=== PATIENT | male | born 1960 | race Caucasian/White ===

== ENCOUNTER 2023-11-21 13:10 | Inpatient (IN) | payer OTHER, SELFPAY ==
[2023-11-21] VITALS (14 sets, daily range): BP systolic 119–179; BP diastolic 70–116; BMI 31.9
--- NOTE | 2023-11-21 11:18 | ED.GENMED ---
History of Present Illness
General
Chief Complaint: Alcohol Problem
Source: patient and records
Exam Limitations: none
Time Seen by Provider: 11/21/23 10:41
Nursing documentation reviewed up to this point in time: agreed with
Travel History
Have you had any contact with someone who has COVID-19?: No
Do you have any symptoms of coronavirus? Fever > 100 degrees, chills, cough, shortness of breath, sore throat, loss of taste or smell, muscle aches, or headache?: No
History of Present Illness
History of Present Illness:
Patient is a 63-year-old male who presents to the emergency department complaining of cramping and twitching along with not able to keep anything down when he eats. Patient has had this before secondary to alcohol. Patient's last drink was at 4
AM. Patient normally drinks 15 beers and a few shots a day. Patient denies any numbness or paresthesias. Patient denies chest pain, shortness of breath or palpitations. Patient complains of vague diffuse abdominal pain and cramping.
Past History
Past History
ED Past Medical History: COPD, HTN and Other (chronic alcoholic)
ED Past Surgical History: Orthopedic (L ankle sx 1999)
Patient has exhibited threatening behavior?: No
Social History
Tobacco: Former smoker (quit 04/26)
Alcohol: Chronic alcoholic (3-4 beers a day)
Drug: None
Personal: Single
Living: with family
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
Family History
Family History: Other (n/c)
Review of Systems
Review of Systems
All Other Systems: ROS reviewed and negative except as documented in HPI and ROS
Constitutional: Reports fatigue; Denies fever or chills
EENT: Reports no symptoms
Respiratory: Reports no symptoms
Cardiac: Reports no symptoms
ABD/GI: Reports abdominal pain, nausea, vomiting and anorexia; Denies diarrhea or constipated
: Reports no symptoms
Musculoskeletal: Reports muscle pain
Skin: Reports no symptoms
Neurological: Reports no symptoms
Hematologic/Lymphatic: Reports no symptoms
Phy Exam
Physical Exam
Physical Exam:
Physical Exam
General: No apparent moderate distress, alert and appropriate, well nourished, dry mucous membranes
HENT: Normocephalic, supple with no lymphadenopathy, no thyromegaly
Eyes: Clear sclera, conjuctiva without injection
Heart: Regular rhythm and rate. No S3, S4. No murmur. No NVD
Lungs: No respiratory distress, no stridor, lung sounds clear and equal bilaterally
Abdomen: Soft, mild diffuse tenderness without guarding or rebound, no organomegaly, no CVA tenderness, BS good
Neuro: Alert and oriented x 3, CN II - XII intact, no motor focality, no cerebellar dysfunction
Skin: Scattered ecchymosis
Psychiatric: well kept. interactive and cooperative
Extremities: No edema, cyanosis, tenderness
Scores
Withdrawal Assessment of Alcohol
Withdrawal Assessment Completed?: Yes
Nausea and Vomiting: Intermittent nausea with dry heaves
Tactile Disturbances: None
Tremor: Moderate, with patient's arms extended
Auditory Disturbances: Not present
Paroxysmal Sweats: No sweat visible
Visual Disturbances: Not present
Anxiety: Mild anxiety
Headache, Fullness in Head: Very mild
Agitation: Moderately fidgety and restless
Orientation and clouding of sensorium: Oriented and can do serial additions
Total CIWA Score: 14
Alcohol Withdrawal Medication Recommendation: Equal to MSAS Score 5-7. Lorazepam 1mg IV or PO NOW & re-assess q2hrs
Course
Orders/Labs/Results
Orders:
Orders
11/21/23 11:09
Electrocardiogram (*1) Urgent
Reason for Study: Fatigue / Weakness
EKG- Treatment ONCE
11/21/23 11:10
Alcohol Urgent
CMP [Comprehensive Metabolic Panel] Urgent
Complete Blood Count/With Diff Urgent
11/21/23 11:16
Lipase Urgent
Serum Osmolality Urgent
11/21/23 11:17
0.9% Sodium Chloride 1000 ml [Nss] 1,000 ml IV BOLUS
Lorazepam [Ativan] 1 mg IV NOW STA
Ondansetron Injectable [Zofran] 4 mg IV NOW STA
Thiamine Injection 100 mg IV NOW STA
11/21/23 11:56
3% Sodium Chloride 250 ml [Sodium Chloride 3%] 250 ml IV ONCE
11/21/23 12:00
Urinalysis Reflex To Culture Urgent
Abnormal Lab Results
11/21/23
11:10
RBC 4.57 L 10^6/uL
(4.70-6.10)
MCH 32.6 H pg
(27.0-31.0)
Abs Immat Gran (auto) 0.1 H 10^3/uL
(0-0.05)
Absolute Neuts (auto) 7.2 H 10^3/uL
(1.4-6.5)
Absolute Lymphs (auto) 0.9 L 10^3/uL
(1.2-3.4)
Absolute Monos (auto) 0.7 H 10^3/uL
(0.1-0.6)
Immature Gran % 0.7 H %
(0-0.5)
Neutrophils % 79.2 H %
(42.2-75.2)
Lymphocytes % 10.1 L %
(20.5-51.1)
Sodium 113 L* mmol/L
(135-145)
Chloride 79 L mmol/L
(98-107)
AST 165 H U/L
(17-59)
ALT 108 H U/L
(0-50)
11/21/23 11:10
11/21/23 11:10
Vital Signs
Initial and Last Documented VS:
Initial Vital Signs
Temp Pulse Resp BP Pulse Ox
98.1 F 100 18 179/114 96
11/21/23 10:34 11/21/23 10:34 11/21/23 10:34 11/21/23 10:34 11/21/23 10:34
Last Documented Vital Signs
Temp Pulse Resp BP Pulse Ox
98.1 F 100 18 179/114 96
11/21/23 10:34 11/21/23 10:34 11/21/23 10:34 11/21/23 10:34 11/21/23 10:34
*Radiology
Radiology exam reviewed: other (na)
*Pulse Oximetry
Patient hypoxic: no
*EKG
Interpreted by ED Provider?: Yes
EKG Intrepretation Date: 11/21/23
EKG Intrepretation Time: 12:03
Interpretation: normal
Comparison EKG: no changes
Heart Rate: 83
Rate: normal
Rhythm: sinus
[place]: normal axis
Interval: normal interval
QRS Pattern: normal QRS
Ischemia: no ischemia
*District G[facility]er Interpretation
Rate: normal
Interpretation: normal
Heart Rate: 85
Rhythm: sinus
*Critical Care Note
Total Time (30-74mins, 75-104mins- exclusive of procedures): 35 minutes
Update Note
Update Note:
Patient's sodium once again is low. Patient was started on 3% and urine and serum osmolality will be done. Patient will be admitted.
ED Attending Note
-
Portions of this chart may have been created with voice recognition software.� Occasional wrong word or��sound alike� substitutions may have occurred due to the inherent limitations of voice recognition software.
Discharge Plan
Departure
Patient Disposition: Admit
Date of Disposition: 11/21/23
Time of Disposition: 12:04
Admit to: Telemetry
Admit to doctor: Hospitalist
Presentation/result/management discussed w/ accepting MD/DO: Hospitalist
Patient with high blood pressure during this ER visit?: Yes
Condition: Serious
Covid-19: Not Applicable
Discharge Problem:
Hyponatremia, Alcohol withdrawal
Prescriptions:
No Action
atorvastatin 20 MG tablet
20 mg PO DAILY
aspirin 81 MG tablet,delayed release (DR/EC)
81 mg PO DAILY
lisinopril-hydrochlorothiazide 20-12.5 mg Tablet
1 tab PO DAILY
nicotine 21 mg/24 hr Patch 24 Hour
1 patch TRANSDERMAL DAILY PRN (Reason: smoking cessation)
Patient Comments:
11/21/2023, pt. not currently wearing one, but states that he had one on his left arm for a few hours last night (11/20/2023).
albuterol sulfate 90 mcg/actuation Hfa Aerosol Inhaler
2 puff INHALATION R Q4HPRN PRN (Reason: sob)
budesonide-formoterol [Symbicort] 160-4.5 mcg/actuation Hfa Aerosol Inhaler
2 puff INHALATION R BID
Imodium liquid
1 dose PO DAILYPRN PRN (Reason: diarrhea)
Referrals:
Radha Lindsay MD [Family Provider] -
Interventions
Interventions:
*General Assessment Last Done: 11/21/23 11:22
ED- Fall Risk Assessment Last Done: 11/21/23 11:21
*ED COVID-19 Vaccine History Last Done: 11/21/23 10:38
ED- Neurological Assessment Last Done: 11/21/23 11:15
ED-Psychological Assessment Last Done: 11/21/23 11:15
[2023-11-21] MEDS: ZOFRAN 4 MG IV (11:28)
[2023-11-21] MEDS: ATIVAN 1 MG IV ×2 (11:28→18:17)
[2023-11-21] MEDS: THIAMINE INJECTION 100 MG IV (11:28)
[2023-11-21] MEDS: NSS 1000 IV (11:29)
[2023-11-21 11:36] LABS: ALT (SGPT) 108 U/L (0-50); AST (SGOT) 165 U/L (17-59); Albumin 4.2 g/dl (3.5-5.0); Alcohol None Detected; Alkaline Phosphatase 94 U/L (38-126); Blood Urea Nitrogen 12 mg/dl (9-20); Calcium 9.1 mg/dl (8.4-10.2); Carbon Dioxide 27 mmol/L (22-30); Chloride 79 mmol/L (98-107); Glucose 99 mg/dl (70-99); Potassium 4.1 mmol/L (3.5-5.1); Sodium 113 mmol/L (135-145); Total Bilirubin 1.2 mg/dl (0.2-1.3); Total Protein 7.1 g/dl (6.3-8.2); eGFR > 60.00
[2023-11-21 11:44] LABS: % Basophils 0.6 % (0-2); % Eosinophils 1.2 % (0-6); % Immature Granulocytes 0.7 % (0-0.5); % Lymphocytes 10.1 % (20.5-51.1); % Monocytes 8.2 % (1.7-9.3); % Neutrophils 79.2 % (42.2-75.2); Absolute Basophils 0.1 10^3/uL (0-0.2); Absolute Eosinophils 0.1 10^3/uL (0-0.7); Absolute Immature Granulocytes 0.1 10^3/uL (0-0.05); Absolute Lymphocytes 0.9 10^3/uL (1.2-3.4); Absolute Monocytes 0.7 10^3/uL (0.1-0.6); Absolute Neutrophils 7.2 10^3/uL (1.4-6.5); Hematocrit 40.5 % (39.0-52.0); Hemoglobin 14.9 g/dL (13.0-18.0); Mean Corp Hgb Conc. 36.8 g/dL (33.0-37.0); Mean Corpuscular Hgb 32.6 pg (27.0-31.0); Mean Corpuscular Volume 88.6 fL (80.0-94.0); Mean Platelet Volume 8.2 fL (7.4-10.4); Nucleated Red Blood Cells % 0 % (-); Platelet Count 306 10^3/uL (130-400); Red Blood Cell Count 4.57 10^6/uL (4.70-6.10); Red Cell Dist. Width 12.5 % (11.5-14.5); White Blood Cell Count 9.1 10^3/uL (4.8-10.8)
[2023-11-21] MEDS: SODIUM CHLORIDE 3% 250 IV ×2 (12:28→22:44)
--- NOTE | 2023-11-21 13:04 | HPS.HSE ---
Addendum entered and electronically signed by Ra More MD 11/21/23 13:22:
I saw and examined the patient.
The [employer] or PA's note was reviewed and I agree with the note.
Comment: 63-year-old male with history of smoking, alcohol came to the hospital with nausea and vomiting along with abdominal cramping. Sodium 113 on admission. 3% saline in the ED. Consult nephrology. Check urine and serum osm, lites. Fluid
restriction. Check sodium periodically. Check chest x-ray. Hold HCTZ. Continue with lisinopril. Hydralazine as needed. Monitor LFTs. Alcohol withdrawal protocol.
General: Comfortable and Conversant
HEENT: NormoCephalic, Atraumatic and Oxygen (Nasal Cannula)
Respiratory: Wheezes, Rales (Few scattered) and Non Labored Respirations
Cardiac: S1/S2 and Regular Rhythm
GI: Soft, Non Distended and Tender (Mild Epigastric Region)
Rectal: Deferred by Provider
Musculoskeletal: No Clubbing, No Cyanosis and Other (Trace edema bilateral lower extremities)
Skin: Warm and Dry
Neuro: Awake, Alert, Oriented and Nonfocal/grossly intact
I spent a total of 77 minutes with the patient or on the floor. More than 50% of this time involved counseling and coordination of care.
Original Note:
Family Physician
-
Family Physician: Radha Lindsay
Chief Complaint
-
Nausea, Vomiting and Muscle Cramps
History of Present Illness
Pt is a 63yo M w/ a PMH of HTN, HLD, COPD and alcohol use disorder who is presenting to the ED c/o cramps x . The patient states that he began experiencing muscle cramps and abdominal cramping 2 days ago but the frequency and intensity has
increased in the last day. He states he is also nauseous and has vomited several times. He admits to drinking several beers daily but states that he has increased his consumption to around 15 12oz beers nightly as well as 4-5 shots of vodka each day
over the last two weeks. He denies fevers.
Medical History
Past Medical History
Past Medical History: Reports Other
Additional Past Medical History:
Essential Hypertension
Hyperlipidemia
COPD
Alcohol Use Disorder
Past Surgical History: Reports Orthopedic
Social History
Tobacco: Smoker (Previously 2 packs of cigarettes, now 2 packs of cigars per day)
Alcohol: Daily (15 beers plus 4-5 shots of Vodka Daily)
Drug: None
Family History
Family History: Not pertinent
Allergies / Home Medications
Allergies reflects when Allergies were last updated in [employer].
Home Medications with original date entered in [employer]
Allergy/Medication List:
Allergies
Allergy/AdvReac Type Severity Reaction Status Date / Time
No Known Allergies Allergy Verified 11/21/23 10:39
Home Medications
aspirin 81 mg tablet,delayed release 81 mg PO DAILY Blood Clot Prevention/Tx 10/23/18
atorvastatin 20 mg tablet 20 mg PO DAILY High Cholesterol 10/23/18
Imodium 1 dose PO DAILYPRN PRN diarrhea 11/21/23
albuterol sulfate 90 mcg/actuation aerosol inhaler 2 puff inhalation R Q4HPRN PRN sob 11/21/23
budesonide-formoterol HFA 160 mcg-4.5 mcg/actuation aerosol inhaler (Symbicort) 2 puff inhalation R BID Lung/Breathing Issues 11/21/23
lisinopril 20 mg-hydrochlorothiazide 12.5 mg tablet 1 tab PO DAILY Blood Pressure 11/21/23
nicotine 21 mg/24 hr daily transdermal patch 1 patch transdermal DAILY PRN smoking cessation 11/21/23
Review of Systems
-
A 12 point ROS was completed and negative except as noted: Yes
Constitutional: Denies Fever
Respiratory: Reports Cough (Chronic put recently worse with increased mucus production)
Cardiac: Denies Chest Pain or Palpitations
Abdomen/GI: Reports Abdominal Pain, Nausea, Vomiting and Diarrhea
Physical Exam
Vital Signs
Vital Signs
Temp Pulse Resp BP Pulse Ox
98.1 F 100 18 179/114 96
11/21/23 10:34 11/21/23 10:34 11/21/23 10:34 11/21/23 10:34 11/21/23 10:34
Physical Exam
General: Comfortable and Conversant
HEENT: NormoCephalic, Atraumatic and Oxygen (Nasal Cannula)
Respiratory: Wheezes, Rales (Few scattered) and Non Labored Respirations
Cardiac: S1/S2 and Regular Rhythm
GI: Soft, Non Distended and Tender (Mild Epigastric Region)
Rectal: Deferred by Provider
Musculoskeletal: No Clubbing, No Cyanosis and Other (Trace edema bilateral lower extremities)
Skin: Warm and Dry
Neuro: Awake, Alert, Oriented and Nonfocal/grossly intact
Laboratory Results
-
11/21/23 11:10
Laboratory Results
Total Bilirubin 1.2 mg/dl (0.2-1.3) 11/21/23 11:10
AST 165 U/L (17-59) H 11/21/23 11:10
ALT 108 U/L (0-50) H 11/21/23 11:10
Alkaline Phosphatase 94 U/L (38-126) 11/21/23 11:10
Data Reviewed
-
Lab Data: Labs Reviewed by me
Old Records: Reviewed
Impression/Plan
-
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
-Admit to ICU for close monitoring
-Consult Nephrology
-Hold HCTZ
-Start fluid restriction
-Continue 3% Na
-Monitor frequent sodium levels
Alcoholic Gastritis/Hepatitis
-Allow clear liquids
-Add Protonix
-Trend LFTs
Acute COPD Exacerbation
-Check CXR
-Change Symbicort to Pulmicort Neb and Duoneb
Essential Hypertension - Uncontrolled
-Continue lisinopril
-Add hydralazine prn
Hyperlipidemia
-Hold atorvastatin
Alcohol Use Disorder
-Continue thiamine and folic acid
-Continue alcohol withdrawal protocol
Tobacco Use Disorder
-Encourage smoking cessation
DVT proph: Lovenox
Code Status: Full Code
[2023-11-21 13:36] LABS: GGTP 94 U/L (15-73); Magnesium 1.6 mg/dl (1.6-2.3); Phosphorus 4.1 mg/dl (2.5-4.5)
[2023-11-21 14:10] LABS: Urine Albumin 3+ (Neg - Trace); Urine Bilirubin Negative (Negative); Urine Character Clear (Clear); Urine Color Yellow; Urine Glucose Negative (Negative); Urine Ketone Trace (Negative); Urine Leukocyte Negative (Negative); Urine Nitrite Negative (Negative); Urine Occult Blood 1+ (Negative); Urine Urobilinogen Negative (Neg - 1+)
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
[2023-11-21 14:26] LABS: Osmolality Urine 214 mOsm/kg (300-900)
[2023-11-21 14:30] LABS: Urine Bacteria Few (Negative); Urine Red Blood Cell 0-2 /HPF (0-2); Urine Squamous Cell 0-2 /LPF (Few); Urine White Cell 0-2 /HPF (0-5)
[2023-11-21 14:33] LABS: Urine Sodium 30 mmol/L (30-90)
--- NOTE | 2023-11-21 14:59 | CM ---
CM met with pt bedside
Pt resides in a 1SH with no steps to enter
Pt notes he is independent with his ADLs
Denies use of DMEs and hx with VN/SNF
Pt admits to heavy drinking daily- approx 15 cans beer and a few shots of vodka daily
Pt denies hx with outpatient or inpatient D/A rehab
Pt does not work and is insured through [employer] friend/Nataliya is primary contact- no POA
PCP- Radha Lindsay
Rx- [facility] discussed- pt notes he would be open to referral closer to discharge
Plan for admissions to ICU and MSAS protocol initiated
Discharge Disposition- home, likely with [facility], watch for higher needs
[2023-11-21] MEDS: DUONEB 3 ML INH ×2 (16:17→20:47)
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
[2023-11-21 16:38] LABS: Sodium 117 mmol/L (135-145)
[2023-11-21] MEDS: APRESOLINE 5 MG IV (16:47)
[2023-11-21] MEDS: LOVENOX 40 MG SC (18:17)
--- NOTE | 2023-11-21 18:27 | PTCARENOTE ---
Pt admitted and assessment performed. Within an hour of admission, MSAS 7 to 9. Pt restless, removing clothes, linen from bed, tremors, diaphoretic and tachycardiac. Ativan 1mg given. 3% sodium gtt infusing.
--- NOTE | 2023-11-21 20:00 | PTCARENOTE ---
resumed care of pt sitting on side of bed AAOx3. Pt naked and refusing to put on hospital gown. Pt otherwise cooperative with care. MSAS protocol in place, MSAS 5 at this time, Pt received Ativan prior to assessment. HR ST on the monitor HR
115-120's. HR in NSR in the 80's at rest. POX 92% on RA. Lungs dec/ course with scattered rhonchi, ex wheezes. Pt tachypneic BAHENA. Moist occ productive cough. yankour provided. + bowel, round obese abd. Pt using urinal independently. Palpable
peripheral pulses. Brown legs. LEft forearm int infusing 3% Na Cl @30ml/hr. Rigth AC int capped. No issues noted at this time. Will continue to monitor.
[2023-11-21 20:36] LABS: Osmolality Serum 245 mOsm/kg (275-300)
[2023-11-21 20:42] LABS: Lipase 99 U/L (23-300)
[2023-11-21] MEDS: PULMICORT 0.5 MG INH (20:47)
[2023-11-21] MEDS: MUCINEX 600 MG PO (20:58)
[2023-11-21] MEDS: THIAMINE INJECTION 200 MG IV (20:59)
[2023-11-21 21:11] LABS: TSH 2.39 uIU/ml (0.47-4.68)
[2023-11-21 22:30] LABS: Phosphorus 3.9 mg/dl (2.5-4.5); Sodium 117 mmol/L (135-145)
[2023-11-22] VITALS (19 sets, daily range): BP systolic 120–170; BP diastolic 75–100; BMI 31.9
[2023-11-22 02:08] LABS: Osmolality Urine 161 mOsm/kg (300-900)
--- NOTE | 2023-11-22 04:00 | PTCARENOTE ---
Pt awake intermittently t/o the night. MSAS<4, No Ativan needed overnight. Pt using urinal as needed. 2 LO2 NC applied HS. Pt with occasional harsh moist productive cough. 3% NCl infusing as ordered. Pt denies any complaints. Pt cooperative with
staff. Will continue to monitor.
[2023-11-22 04:38] LABS: Hematocrit 36.9 % (39.0-52.0); Hemoglobin 13.3 g/dL (13.0-18.0); Mean Corpuscular Hgb 32.5 pg (27.0-31.0); Mean Corpuscular Volume 90.2 fL (80.0-94.0); Mean Platelet Volume 8.3 fL (7.4-10.4); Platelet Count 195 10^3/uL (130-400); Red Blood Cell Count 4.09 10^6/uL (4.70-6.10); Red Cell Dist. Width 12.5 % (11.5-14.5); White Blood Cell Count 7.7 10^3/uL (4.8-10.8)
[2023-11-22 05:00] LABS: ALT (SGPT) 94 U/L (0-50); AST (SGOT) 159 U/L (17-59); Albumin 3.5 g/dl (3.5-5.0); Alkaline Phosphatase 77 U/L (38-126); Blood Urea Nitrogen 16 mg/dl (9-20); Calcium 8.4 mg/dl (8.4-10.2); Carbon Dioxide 29 mmol/L (22-30); Chloride 90 mmol/L (98-107); Estimated Creatinine Clearance 90 ml/min; Glucose 86 mg/dl (70-99); Magnesium 1.8 mg/dl (1.6-2.3); Phosphorus 4.2 mg/dl (2.5-4.5); Potassium 3.9 mmol/L (3.5-5.1); Sodium 119 mmol/L (135-145); Total Bilirubin 1.1 mg/dl (0.2-1.3); Total Protein 6.1 g/dl (6.3-8.2); eGFR > 60.00
[2023-11-22 05:29] LABS: TSH Reflex To Free T4 2.97 uIU/ml (0.47-4.68)
[2023-11-22] MEDS: ZESTRIL 20 MG PO (07:28)
[2023-11-22] MEDS: NSS (PRESERVATIVE FREE) 10 ML IV (07:28)
[2023-11-22] MEDS: MUCINEX 600 MG PO ×2 (07:28→21:39)
[2023-11-22] MEDS: THERAGRAN 1 TABLET PO (07:28)
[2023-11-22] MEDS: FOLVITE 1 MG PO (07:28)
[2023-11-22] MEDS: PROTONIX IV 40 MG IV (07:29)
[2023-11-22] MEDS: DUONEB 3 ML INH ×2 (07:30→10:57)
[2023-11-22] MEDS: PULMICORT 0.5 MG INH (07:30)
[2023-11-22] MEDS: THIAMINE INJECTION 200 MG IV ×2 (07:31→21:40)
--- NOTE | 2023-11-22 08:14 | W.PN.INTV ---
Today's Communication / Plan
Recommendations
Trend serum Na
Nephro on board --> recs appreciated
LABA/ICS with prn DuoNebs
Pt is stable for downgrade out of ICU to telemetry. Equipment Associate/pulmonary service will now sign off. Please reconsult if there are any additional questions/concerns, or if respiratory issues develop.
Assessment
-
Assessment: 63-year-old male active tobacco smoker (2 cigars daily) with past medical history of hyperlipidemia, hypertension and tobacco use disorder presented with shakiness and feeling like his muscles were twitching since this morning. Patient
found to be hyponatremic with serum sodium 113. Patient now being transferred to the ICU for further management and critical care services consulted for additional recommendations.
Chronic medical conditions PSYCHIATRIC TECH: Alcohol abuse, tobacco use disorder, HTN, ?COPD, solitary kidney and HLD
Impression:
#Acute on chronic hypotonic, hyponatremia - due to suspected beer potomania
#Alcohol abuse at high risk for withdrawal seizures, but not currently in acute EtOH WD
#Tobacco use disorder with high suspicion for COPD
#Reported Hx of COPD (not currently in an acute exacerbation)
#Alcoholic liver disease (steatosis seen on prior abd US from 2019) with transaminitis consistent with recent EtOH ingestion
#Obesity (BMI: 31.9)
#HTN
Plan:
- Serial BMP every 4�6 hours
- Cautiously correct serum sodium with goal Na correction of <8-10mmol/L in 24 hrs, and <16-18mmol/L in 48 hrs --> goal Na today will be between 125-130
- Goal K>3.5, Mg>1.8, PO>3
- Serum uric acid is 6 --> this in addition to borderline low urine Na rules against SIADH
- Maintain MAP >65 but keep BP<140/90
- Continue prn nebulized bronchodilators -patient not currently bronchospastic
- Resume LABA/ICS (takes Symbicort at home) and then stop budesonide
- MSAS with thiamine, folate and MVN
- consider consult for psych with referral to EtOH rehab, if patient amenable for treatment
- prn muscle relaxers - ideally would give robaxin, however we do not carry this --> I gave a 1 time dose of Flexeril
- nicotine patch
- Maintain BG 140�180
- DVT prophylaxis
Patient stable for downgrade out of ICU to telemetry. Equipment Associate/pulmonary service will now sign off. Please reconsult if there are any additional questions/concerns, or if respiratory issues develop. Thank you for allowing us to be involved in
the care of this patient.
Data:
CXR 11-21-2023:
1. Clear lungs.
2. No significant change compared to prior study.
Subjective Dataa
Subjective Data
Date of Service:
Date of Service: November 22, 2023
Chief Complaint: Equipment Associate Follow Up
Subjective:
Seen this AM. Serum Na up to 120 this AM. Off 3% since 7AM today. MSAS is 5 today. No acute events reported from overnight.
Review of Systems
General: Other (12 point ROS performed and is negative unless mentioned above.)
Objective Data
Data Reviewed
Vital Signs / I&O / Oxygen:
Vital Signs
Temp Pulse Resp BP Pulse Ox
98.4 F 93 23 121/81 92
11/22/23 08:17 11/22/23 08:30 11/22/23 08:30 11/22/23 08:00 11/22/23 08:15
Intake and Output
11/21/23 11/22/23 11/23/23
06:59 06:59 06:59
Intake Total 780 / 810 530 / 530
Output Total 2200 / 2200
Balance -1420 / -1390 530 / 530
SaO2 92
Nasal Cannula flow liters per 2
minute
Physical Exam
General: Comfortable
HEENT: Normocephalic, Anicteric and Moist Mucous Membranes
Cardiovascular: S1-S2
Respiratory: Clear, Wheeze (negative), Crackles (negative) and Rhonchi (negative)
GI: Soft, Non Distended, Non Tender and Normal Bowel Sounds
Neurology: Awake, Alert and No Motor Deficits
Skin: Warm and Dry
Labs/Micro/Reports
Lab Data
11/22/23 04:11
--- NOTE | 2023-11-22 08:44 | PTCARENOTE ---
Assumed care of pt sitting on side of bed AAOx3. Pt naked and refusing to put on hospital gown. Pt otherwise cooperative with care. MSAS protocol in place, MSAS 3 at this time, HR in NSR in the 80's at rest. POX 93% on RA. Lungs dec/ course with
scattered rhonchi, ex wheezes. Pt tachypneic BAHENA. Moist occ productive cough. yankour provided. + bowel, round obese abd. Pt using urinal independently. Palpable peripheral pulses. Brown legs. 3% Na Cl @30ml/hr complete. Rigth AC int capped. No
issues noted at this time. Will continue to monitor.
[2023-11-22 08:56] LABS: Glycohemoglobin (HgbA1c) 5.5 % (4.0-5.6)
[2023-11-22 10:15] LABS: Sodium 120 mmol/L (135-145)
--- NOTE | 2023-11-22 12:07 | PTCARENOTE ---
Pt unable to find phone. Never visualized by RN in room. contacted security, ED and housekeeping without results. Walked ED while calling phone # with no success. [employer] Supervisor and patient notified.
--- NOTE | 2023-11-22 12:54 | W.PN.HOSP.TC ---
Today's Communication/Plan
-
Monitor vitals
See plan
Continue to hold hydrochlorothiazide
Monitor sodium, okay to downgrade if persistently greater than 120
Continue with lisinopril
nebs
Assessment / Plan
Assessment / Plan
General: Comfortable and Conversant
HEENT: NormoCephalic, Atraumatic and Oxygen (Nasal Cannula)
Respiratory: No wheezes, few scattered rales
Cardiac: S1/S2 and Regular Rhythm
GI: Soft, Non Distended and Tender (Mild Epigastric Region)
Rectal: Deferred by Provider
Musculoskeletal: No Clubbing, No Cyanosis and Other (Trace edema bilateral lower extremities)
Skin: Warm and Dry
Neuro: Awake, Alert, Oriented and Nonfocal/grossly intact
Severe Hyponatremia secondary to Beer Potomania and HCTZ
-Consult Nephrology following
3% NS
monitor sodium
agree with downgrading if Na persistently >120
-Hold HCTZ
-Continue 3% Na
-Monitor frequent sodium levels
Alcoholic Gastritis/Hepatitis
improving
on regular diet now
-Added Protonix
-Trend LFTs
Hx of COPD; i do not suspect COPD exacerbation at this time
Patient was never hypoxic on admission however was put on oxygen for comfort. Currently on RA
-CXR without any PNA
-Change Symbicort to Pulmicort Neb and Duoneb
Essential Hypertension - Uncontrolled
-Continue lisinopril
-Add hydralazine prn
Hyperlipidemia
-Hold atorvastatin
Alcohol Use Disorder
-Continue thiamine and folic acid
-Continue alcohol withdrawal protocol
Tobacco Use Disorder
-Encourage smoking cessation
DVT proph: Lovenox
Code Status: Full Code
I spent a total of 52 minutes with the patient or on the floor. More than 50% of this time involved counseling and coordination of care.
Anticipated Discharge: 24 - 48 hours
Subjective/Interval History
-
Date of Service: November 22, 2023
denies pain
Objective Data
-
Labs:
Laboratory Results
11/22/23 11/22/23 11/22/23
04:11 09:47 16:00
WBC 7.7
Hgb 13.3
Hct 36.9 L
Plt Count 195 D
Sodium 119 L* 120 L Pending
Potassium 3.9 Pending
Chloride 90 L Pending
Carbon Dioxide 29 Pending
BUN 16 Pending
Creatinine 1.0 Pending
Glucose 86 Pending
Calcium 8.4 Pending
Total Bilirubin 1.1 Pending
AST 159 H Pending
ALT 94 H Pending
Alkaline Phosphatase 77 Pending
Vital Signs:
Vital Signs
Temp Pulse Resp BP Pulse Ox
98.4 F 87 19 120/83 95
11/22/23 12:11 11/22/23 12:00 11/22/23 12:00 11/22/23 11:00 11/22/23 11:59
I&O
11/21/23 11/22/23 11/23/23
06:59 06:59 06:59
Intake Total 780 / 810 530 / 530
Output Total 2200 / 2200 350 / 350
Balance -1420 / -1390 180 / 180
[2023-11-22] MEDS: TYLENOL 650 MG PO (13:46)
--- NOTE | 2023-11-22 13:56 | W.PN.NEPH.PH ---
Today's Communication / Plan
-
- continue to trend Na
Assessment/Plan
-
Assessment:
Severe hyponatremia
Severe alcohol abuse disorder
High risk for DTs
Smoker
COPD
Absent L kidney
Hypertension (on thiazide at home)
Diarrhea x1 week
Diffuse muscle cramping
Plan:
- differential for hyponatremia includes impaired free water excretion in the presence of thiazide + high intake of low osmolar solution (beer)
- Uosm 214, Travis 30 --> consistent with beer potomania + thiazide induced hyponatremia
- Na increased from 113 --> 120 this AM with hypertonics given yesterday
- patient eating and drinking well so i believe his ADH stimulus will be gone (supported by decreasing Uosm)
- hold thiazide diuretic
- alcohol withdrawal protocol, please ensure thiamine is given
- continue to trend Na. If Na begins to drop, can consider initiating NS at 100cc/hr but likely patient will correct by himself.
- please check TSH wnl
- replete K as needed
-
-
Date of Service: November 22, 2023
CC / HPI / ROS
-
Chief Complaint:
hyponatremia
History of Present Illness:
Na improved from 113 --> 120
Uosm decreasing
patient eating and drinking well
Review of Systems:
no complaints this AM
Labs
-
Labs:
WBC 7.7 10^3/uL (4.8-10.8) 11/22/23 04:11
RBC 4.09 10^6/uL (4.70-6.10) L 11/22/23 04:11
Hgb 13.3 g/dL (13.0-18.0) 11/22/23 04:11
Hct 36.9 % (39.0-52.0) L 11/22/23 04:11
Plt Count 195 10^3/uL (130-400) D 11/22/23 04:11
eGFR > 60.00 11/22/23 04:11
Phosphorus 4.2 mg/dl (2.5-4.5) 11/22/23 04:11
Physical Exam
-
Vital Signs:
Vital Signs
Temp Pulse Resp BP Pulse Ox
98.4 F 87 19 120/83 95
11/22/23 12:11 11/22/23 12:00 11/22/23 12:00 11/22/23 11:00 11/22/23 11:59
Cardiovascular:: Regular rate and rhythm
Respiratory:: Bilateral: CTA
Lung Excursion:: Normal
Abdomen:: Nontender and Soft
Bowel Sounds:: Normal
Extremity Edema:: +1: Bilateral:
Johnson Catheter: No
--- NOTE | 2023-11-22 14:35 | PTCARENOTE ---
Pt remains OOB in chair. MSAS 5. VSS. Assessment unchanged
[2023-11-22 15:54] LABS: ALT (SGPT) 89 U/L (0-50); AST (SGOT) 153 U/L (17-59); Albumin 3.6 g/dl (3.5-5.0); Alkaline Phosphatase 75 U/L (38-126); Blood Urea Nitrogen 19 mg/dl (9-20); Calcium 8.9 mg/dl (8.4-10.2); Carbon Dioxide 26 mmol/L (22-30); Chloride 90 mmol/L (98-107); Estimated Creatinine Clearance 99 ml/min; Glucose 107 mg/dl (70-99); Potassium 3.9 mmol/L (3.5-5.1); Sodium 121 mmol/L (135-145); Total Bilirubin 0.9 mg/dl (0.2-1.3); Total Protein 6.4 g/dl (6.3-8.2); eGFR > 60.00
--- NOTE | 2023-11-22 17:12 | PTCARENOTE ---
Report given to 4E. Pt assisted to wheelchair and escorted to [id number]
[2023-11-22] MEDS: LOVENOX 40 MG SC (17:54)
[2023-11-22] MEDS: SYMBICORT 160/4.5 MCG INHALER 2 PUFF INH (20:47)
[2023-11-22] MEDS: FLEXERIL 5 MG PO (21:39)
[2023-11-23] MEDS: DUONEB 3 ML INH (03:43)
[2023-11-23 05:18] VITALS: BP 144/84; BMI 31.1
[2023-11-23 07:25] VITALS: BP 136/90
[2023-11-23 07:49] LABS: Osmolality Urine 295 mOsm/kg (300-900)
[2023-11-23 07:49] LABS: % Basophils 0.9 % (0-2); % Eosinophils 3.7 % (0-6); % Immature Granulocytes 0.6 % (0-0.5); % Lymphocytes 18.8 % (20.5-51.1); % Monocytes 12.6 % (1.7-9.3); % Neutrophils 63.4 % (42.2-75.2); Absolute Basophils 0.1 10^3/uL (0-0.2); Absolute Eosinophils 0.3 10^3/uL (0-0.7); Absolute Lymphocytes 1.3 10^3/uL (1.2-3.4); Absolute Monocytes 0.9 10^3/uL (0.1-0.6); Absolute Neutrophils 4.3 10^3/uL (1.4-6.5); Hematocrit 37.1 % (39.0-52.0); Hemoglobin 13.5 g/dL (13.0-18.0); Mean Corp Hgb Conc. 36.4 g/dL (33.0-37.0); Mean Corpuscular Hgb 33.3 pg (27.0-31.0); Mean Corpuscular Volume 91.4 fL (80.0-94.0); Mean Platelet Volume 8.4 fL (7.4-10.4); Nucleated Red Blood Cells % 0 % (-); Platelet Count 202 10^3/uL (130-400); Red Blood Cell Count 4.06 10^6/uL (4.70-6.10); Red Cell Dist. Width 12.7 % (11.5-14.5); White Blood Cell Count 6.8 10^3/uL (4.8-10.8)
[2023-11-23] MEDS: SYMBICORT 160/4.5 MCG INHALER 2 PUFF INH ×2 (07:54→19:30)
[2023-11-23 08:14] LABS: Blood Urea Nitrogen 17 mg/dl (9-20); Calcium 9.1 mg/dl (8.4-10.2); Carbon Dioxide 26 mmol/L (22-30); Chloride 92 mmol/L (98-107); Estimated Creatinine Clearance 110 ml/min; Glucose 96 mg/dl (70-99); Potassium 3.9 mmol/L (3.5-5.1); Sodium 125 mmol/L (135-145); eGFR > 60.00
[2023-11-23 08:21] LABS: NT-proBNP 102 pg/ml
--- NOTE | 2023-11-23 08:44 | PN.CDI ---
CDI
- -
CDI:
Physician Documentation Request
Admit Date: 11/21/23 13:10
Dear Doctor Derik,
Patient admitted for hyponatremia.
ED Physician Documentation: 'Patient has had this before secondary to alcohol. Patient's last drink was at 4 AM. Patient normally drinks 15 beers and a few shots a day.'
11/21 PCN: 'Within an hour of admission, MSAS 7 to 9. Pt restless, removing clothes, linen from bed, tremors, diaphoretic and tachycardiac. Ativan 1mg given. '
11/22 Nephrology PN: 'Severe alcohol abuse disorder'
Selected Entries
11/21/23
18:00 11/21/23
18:18 11/21/23
19:00
MSAS SCORE 7 [phone] 5
If possible, please provide further specificity as outlined below:
1. Please specify the pattern of use, include all that apply:
- Use, with or without abuse and/or dependence
- Abuse with or without dependence
- Dependence
2. Please identify any associated manifestations
- Withdrawal
- Other, please specify
- No manifestations
Use of terms such as suspected, likely, concern for, or probable (associated with a specific diagnosis that is being evaluated, monitored, or treated as if it exists) are acceptable and can be coded in the inpatient setting, when documented at the
time of discharge.
Thank you,
Elizabeth Arroyo RN, BSN
CDI Specialist
Available via [employer] text
Please use your independent medical judgment in providing your response.
[2023-11-23] MEDS: FOLVITE 1 MG PO (09:45)
[2023-11-23] MEDS: PROTONIX 40 MG PO (09:45)
[2023-11-23] MEDS: MUCINEX 600 MG PO ×2 (09:45→20:59)
[2023-11-23] MEDS: ZESTRIL 20 MG PO (09:46)
[2023-11-23] MEDS: FLUSH (NSS) 1 FLUSH IV (09:46)
[2023-11-23] MEDS: THERAGRAN 1 TABLET PO (09:46)
[2023-11-23] MEDS: THIAMINE INJECTION 200 MG IV ×2 (09:46→20:59)
--- NOTE | 2023-11-23 10:51 | W.PN.NEPH.PH ---
Today's Communication / Plan
-
Add fluid restriction 48 ounces daily
Assessment/Plan
-
Assessment:
Severe hyponatremia
Severe alcohol abuse disorder
High risk for DTs
Smoker
COPD
Absent L kidney
Hypertension (on thiazide at home)
Diarrhea x1 week
Diffuse muscle cramping
Plan:
-sodium up to 125
- differential for hyponatremia includes impaired free water excretion in the presence of thiazide + high intake of low osmolar solution (beer)
- Uosm 214, Travis 30 --> consistent with beer potomania + thiazide induced hyponatremia
-Added fluid restriction today
-Repeat urine osmolarity 295
- patient eating and drinking well so i believe his ADH stimulus will be gone (supported by decreasing Uosm)
- hold thiazide diuretic indefinitely
- alcohol withdrawal protocol, please ensure thiamine is given
- check TSH wnl
- replete K as needed
-
-
Date of Service: November 23, 2023
CC / HPI / ROS
-
Chief Complaint:
hyponatremia
History of Present Illness:
Na improved from 113 --> 120-->125
Uosm decreasing
patient eating and drinking well
Review of Systems:
no complaints this AM
Labs
-
Labs:
WBC 6.8 10^3/uL (4.8-10.8) 11/23/23 07:16
RBC 4.06 10^6/uL (4.70-6.10) L 11/23/23 07:16
Hgb 13.5 g/dL (13.0-18.0) 11/23/23 07:16
Hct 37.1 % (39.0-52.0) L 11/23/23 07:16
Plt Count 202 10^3/uL (130-400) 11/23/23 07:16
Sodium 125 mmol/L (135-145) L 11/23/23 07:16
Potassium 3.9 mmol/L (3.5-5.1) 11/23/23 07:16
Chloride 92 mmol/L (98-107) L 11/23/23 07:16
Carbon Dioxide 26 mmol/L (22-30) 11/23/23 07:16
BUN 17 mg/dl (9-20) 11/23/23 07:16
Creatinine 0.8 mg/dL (0.7-1.3) 11/23/23 07:16
eGFR > 60.00 11/23/23 07:16
Glucose 96 mg/dl (70-99) 11/23/23 07:16
Calcium 9.1 mg/dl (8.4-10.2) 11/23/23 07:16
Phosphorus 4.0 mg/dl (2.5-4.5) 11/23/23 07:16
Njx-K-Xpnojkshjqe Pept 102 pg/ml 11/23/23 07:16
Albumin 3.6 g/dl (3.5-5.0) 11/22/23 15:36
Physical Exam
-
Vital Signs:
Vital Signs
Temp Pulse Resp BP Pulse Ox
97.6 F 73 18 136/90 95
11/23/23 07:25 11/23/23 09:46 11/23/23 07:56 11/23/23 09:46 11/23/23 09:44
Cardiovascular:: Regular rate and rhythm
Respiratory:: Bilateral: CTA
Lung Excursion:: Normal
Abdomen:: Nontender and Soft
Bowel Sounds:: Normal
Extremity Edema:: None: Bilateral:
[2023-11-23 11:06] VITALS: BP 164/92
--- NOTE | 2023-11-23 13:40 | W.PN.HOSP.TC ---
Today's Communication/Plan
-
Monitor vital signs see plan
Continue with fluid restriction
Monitor sodium
Monitor for alcohol withdrawal
Assessment / Plan
Assessment / Plan
General: Comfortable and Conversant
HEENT: NormoCephalic, Atraumatic and Oxygen (Nasal Cannula)
Respiratory: No wheezes, few scattered rales
Cardiac: S1/S2 and Regular Rhythm
GI: Soft, Non Distended and Tender (Mild Epigastric Region)
Rectal: Deferred by Provider
Musculoskeletal: No Clubbing, No Cyanosis and Other (Trace edema bilateral lower extremities)
Skin: Warm and Dry
Neuro: Awake, Alert, Oriented and Nonfocal/grossly intact
Severe Hyponatremia secondary to Beer Potomania and HCTZ
-Nephrology following
s/p 3% NS
monitor sodium; now 125
-Hold HCTZ
Continue with fluid restrict
Alcoholic Gastritis/Hepatitis
improving
on regular diet now
-Added Protonix
-Trend LFTs
Hx of COPD; i do not suspect COPD exacerbation at this time
Patient was never hypoxic on admission however was put on oxygen for comfort. Currently on RA
-CXR without any PNA
-Change Symbicort to Pulmicort Neb and Duoneb
Essential Hypertension - Uncontrolled
-Continue lisinopril
-Add hydralazine prn
Start amlodipine
Hyperlipidemia
-Hold atorvastatin
Alcohol Use with abuse and dependance and now with alcohol withdrawal
cw MSAS; requiring ativan at times
-Continue thiamine and folic acid
-Continue alcohol withdrawal protocol
Tobacco Use Disorder
-Encourage smoking cessation
DVT proph: Lovenox
Code Status: Full Code
Anticipated Discharge: 24 - 48 hours
Subjective/Interval History
-
Date of Service: November 23, 2023
denies pain
Objective Data
-
Labs:
Laboratory Results
11/23/23
07:16
WBC 6.8
Hgb 13.5
Hct 37.1 L
Plt Count 202
Sodium 125 L
Potassium 3.9
Chloride 92 L
Carbon Dioxide 26
BUN 17
Creatinine 0.8
Glucose 96
Calcium 9.1
Vital Signs:
Vital Signs
Temp Pulse Resp BP Pulse Ox
98.4 F 83 18 164/92 99
11/23/23 11:06 11/23/23 11:06 11/23/23 11:06 11/23/23 11:06 11/23/23 11:06
I&O
11/22/23 11/23/23 11/24/23
06:59 06:59 06:59
Intake Total 780 / 810 770 / 770
Output Total 2200 / 2200 1000 / 1000
Balance -1420 / -1390 -230 / -230
[2023-11-23] MEDS: NORVASC 5 MG PO (14:19)
[2023-11-23 15:22] VITALS: BP 149/88
--- NOTE | 2023-11-23 15:51 | PTCARENOTE ---
Pt AAO x3, HARDIN well, OOB in chair for most of shift, ambulates to BR without difficulty, needs minimal assistance at times with OOB activity. VSS. Telemetry:NSR. On room air- pulse ox 96%, no c/o SOB. Abd large, soft sabrina PO well. Voiding in BR
without difficulty. Resting in bed at present, no c/o. Will continue to monitor.
[2023-11-23] MEDS: LOVENOX 40 MG SC (17:42)
[2023-11-23 19:29] VITALS: BP 141/87
[2023-11-23 23:53] VITALS: BP 155/94
[2023-11-24 03:18] VITALS: BP 158/97
[2023-11-24 04:40] VITALS: BMI 31.1
[2023-11-24 07:00] LABS: % Basophils 1.2 % (0-2); % Eosinophils 4.8 % (0-6); % Immature Granulocytes 0.8 % (0-0.5); % Lymphocytes 21.9 % (20.5-51.1); % Monocytes 13.2 % (1.7-9.3); % Neutrophils 58.1 % (42.2-75.2); Absolute Basophils 0.1 10^3/uL (0-0.2); Absolute Eosinophils 0.4 10^3/uL (0-0.7); Absolute Immature Granulocytes 0.1 10^3/uL (0-0.05); Absolute Lymphocytes 1.6 10^3/uL (1.2-3.4); Absolute Neutrophils 4.2 10^3/uL (1.4-6.5); Hemoglobin 13.4 g/dL (13.0-18.0); Mean Corp Hgb Conc. 35.3 g/dL (33.0-37.0); Mean Corpuscular Hgb 31.9 pg (27.0-31.0); Mean Corpuscular Volume 90.5 fL (80.0-94.0); Mean Platelet Volume 8.1 fL (7.4-10.4); Nucleated Red Blood Cells % 0 % (-); Platelet Count 213 10^3/uL (130-400); Red Cell Dist. Width 12.8 % (11.5-14.5); White Blood Cell Count 7.3 10^3/uL (4.8-10.8)
[2023-11-24 07:30] VITALS: BP 137/80
[2023-11-24 07:34] LABS: Blood Urea Nitrogen 14 mg/dl (9-20); Calcium 9.3 mg/dl (8.4-10.2); Carbon Dioxide 27 mmol/L (22-30); Chloride 93 mmol/L (98-107); Estimated Creatinine Clearance 98 ml/min; Glucose 103 mg/dl (70-99); Potassium 3.9 mmol/L (3.5-5.1); Sodium 128 mmol/L (135-145); eGFR > 60.00
[2023-11-24] MEDS: SYMBICORT 160/4.5 MCG INHALER 2 PUFF INH ×2 (08:09→19:24)
[2023-11-24] MEDS: MUCINEX 600 MG PO ×2 (09:04→19:52)
[2023-11-24] MEDS: FOLVITE 1 MG PO (09:04)
[2023-11-24] MEDS: THERAGRAN 1 TABLET PO (09:05)
[2023-11-24] MEDS: ZESTRIL 20 MG PO (09:05)
[2023-11-24] MEDS: PROTONIX 40 MG PO (09:05)
[2023-11-24] MEDS: NORVASC 5 MG PO (09:05)
[2023-11-24] MEDS: THIAMINE INJECTION 200 MG IV (09:06)
[2023-11-24] MEDS: FLUSH (NSS) 1 FLUSH IV (09:06)
[2023-11-24 11:21] VITALS: BP 149/67
--- NOTE | 2023-11-24 11:30 | CM ---
Patient seen, reports no new concerns at this time. Patient reports that he did lose his phone when he came to ED, reports it is a black IPhone. CM spoke with security, there is what is believed to be an Iphone there. Security not available at the
moment, will meet CM this afternoon to bring IPhone to floor to see if it is patients phone. CM provided patient with pen and paper and wrote down patients emergency contact number. CM will continue to follow for discharge planning needs.
Plan; home no needs anticipated.
--- NOTE | 2023-11-24 13:19 | W.PN.HOSP.TC ---
Today's Communication/Plan
-
Monitor vital signs
see plan
Continue to monitor alcohol withdrawal
Monitor sodium
Nephrology to see today
Assessment / Plan
Assessment / Plan
General: Comfortable and Conversant
HEENT: NormoCephalic, Atraumatic and Oxygen (Nasal Cannula)
Respiratory: No wheezes, few scattered rales
Cardiac: S1/S2 and Regular Rhythm
GI: Soft, Non Distended and Tender (Mild Epigastric Region)
Rectal: Deferred by Provider
Musculoskeletal: No Clubbing, No Cyanosis and Other (Trace edema bilateral lower extremities)
Skin: Warm and Dry
Neuro: Awake, Alert, Oriented and Nonfocal/grossly intact
Severe Hyponatremia secondary to Beer Potomania and HCTZ
-Nephrology following
s/p 3% NS
monitor sodium; now 128
-Hold HCTZ
Continue with fluid restrict
Alcoholic Gastritis/Hepatitis
improving
on regular diet now
-Added Protonix
-Trend LFTs
Hx of COPD; i do not suspect COPD exacerbation at this time
Patient was never hypoxic on admission however was put on oxygen for comfort. Currently on RA
-CXR without any PNA
-Change Symbicort to Pulmicort Neb and Duoneb
Essential Hypertension - Uncontrolled
-Continue lisinopril
-Add hydralazine prn
Start amlodipine
Hyperlipidemia
-Hold atorvastatin
Alcohol Use with abuse and dependance and now with alcohol withdrawal
cw MSAS; requiring ativan at times
-Continue thiamine and folic acid
-Continue alcohol withdrawal protocol
Tobacco Use Disorder
-Encourage smoking cessation
DVT proph: Lovenox
Code Status: Full Code
Anticipated Discharge: Within 24 hours
Subjective/Interval History
-
Date of Service: November 24, 2023
Denies pain
Objective Data
-
Labs:
Laboratory Results
11/24/23
06:46
WBC 7.3
Hgb 13.4
Hct 38.0 L
Plt Count 213
Sodium 128 L
Potassium 3.9
Chloride 93 L
Carbon Dioxide 27
BUN 14
Creatinine 0.9
Glucose 103 H
Calcium 9.3
Vital Signs:
Vital Signs
Temp Pulse Resp BP Pulse Ox
98.7 F 73 18 149/67 96
11/24/23 11:21 11/24/23 11:21 11/24/23 11:21 11/24/23 11:21 11/24/23 11:21
I&O
11/23/23 11/24/23 11/25/23
06:59 06:59 06:59
Intake Total 770 / 770 1320 / 1320
Output Total 1000 / 1000
Balance -230 / -230 1320 / 1320
[2023-11-24 14:52] VITALS: BP 145/88
--- NOTE | 2023-11-24 16:04 | PTCARENOTE ---
Pt AAO x3, HARDIN well, OOB to chair/ambulatory ot BR; sabrina well.; denies weakness/dizziness. VSS. Telemetry:NSR. On room air-pulse ox 97%, no c/o SOB. Abd large, soft, sabrina PO well. Voiding in BR without difficulty. Resting in bed at present, no
c/o. Will continue to monitor.
--- NOTE | 2023-11-24 16:27 | W.PN.NEPH.PH ---
Today's Communication / Plan
-
maintain fluid restriction
Assessment/Plan
-
Assessment:
Severe hyponatremia
Severe alcohol abuse disorder
High risk for DTs
Smoker
COPD
Absent L kidney
Hypertension (on thiazide at home)
Diarrhea x1 week
Diffuse muscle cramping
Plan:
-sodium up to 128
- differential for hyponatremia includes impaired free water excretion in the presence of thiazide + high intake of low osmolar solution (beer)
- Uosm 214, Travis 30 --> consistent with beer potomania + thiazide induced hyponatremia
-maintain fluid restriction
-Repeat urine osmolarity 295
- patient eating and drinking well so i believe his ADH stimulus will be gone (supported by decreasing Uosm)
- holding thiazide diuretic indefinitely
- alcohol withdrawal protocol, please ensure thiamine is given
- check TSH wnl
- replete K as needed
-
-
Date of Service: November 24, 2023
CC / HPI / ROS
-
Chief Complaint:
hyponatremia
History of Present Illness:
Na improved from 113 --> 120-->125--> 128 on FR
Uosm decreasing
patient eating and drinking well
Review of Systems:
no complaints this AM
Labs
-
Labs:
WBC 7.3 10^3/uL (4.8-10.8) 11/24/23 06:46
RBC 4.20 10^6/uL (4.70-6.10) L 11/24/23 06:46
Hgb 13.4 g/dL (13.0-18.0) 11/24/23 06:46
Hct 38.0 % (39.0-52.0) L 11/24/23 06:46
Plt Count 213 10^3/uL (130-400) 11/24/23 06:46
Sodium 128 mmol/L (135-145) L 11/24/23 06:46
Potassium 3.9 mmol/L (3.5-5.1) 11/24/23 06:46
Chloride 93 mmol/L (98-107) L 11/24/23 06:46
Carbon Dioxide 27 mmol/L (22-30) 11/24/23 06:46
BUN 14 mg/dl (9-20) 11/24/23 06:46
Creatinine 0.9 mg/dL (0.7-1.3) 11/24/23 06:46
eGFR > 60.00 11/24/23 06:46
Glucose 103 mg/dl (70-99) H 11/24/23 06:46
Calcium 9.3 mg/dl (8.4-10.2) 11/24/23 06:46
Phosphorus 4.0 mg/dl (2.5-4.5) 11/23/23 07:16
Eux-D-Dtjkjvlakrs Pept 102 pg/ml 11/23/23 07:16
Albumin 3.6 g/dl (3.5-5.0) 11/22/23 15:36
Physical Exam
-
Vital Signs:
Vital Signs
Temp Pulse Resp BP Pulse Ox
97.8 F 73 18 145/88 97
11/24/23 14:52 11/24/23 14:52 11/24/23 14:52 11/24/23 14:52 11/24/23 16:04
Cardiovascular:: Regular rate and rhythm
Respiratory:: Bilateral: CTA
Lung Excursion:: Normal
Abdomen:: Nontender
Bowel Sounds:: Normal
Extremity Edema:: None: Bilateral:
Johnson Catheter: No
[2023-11-24] MEDS: LOVENOX 40 MG SC (17:20)
[2023-11-24 19:37] VITALS: BP 136/87
[2023-11-24] MEDS: VITAMIN B1 100 MG PO (19:52)
[2023-11-24] MEDS: DESENEX/MITRAZOL/ZEASORB 1 APPLIC TOPICAL (22:30)
[2023-11-24 23:44] VITALS: BP 142/99
[2023-11-25 03:25] VITALS: BP 153/94
[2023-11-25 06:00] VITALS: BMI 30.6
[2023-11-25 07:42] VITALS: BP 126/87
[2023-11-25] MEDS: SYMBICORT 160/4.5 MCG INHALER 2 PUFF INH (08:09)
[2023-11-25] MEDS: DUONEB 3 ML INH (08:13)
[2023-11-25 08:31] LABS: % Basophils 1.3 % (0-2); % Eosinophils 4.7 % (0-6); % Immature Granulocytes 0.6 % (0-0.5); % Monocytes 13.3 % (1.7-9.3); % Neutrophils 58.1 % (42.2-75.2); Absolute Basophils 0.1 10^3/uL (0-0.2); Absolute Eosinophils 0.3 10^3/uL (0-0.7); Absolute Lymphocytes 1.4 10^3/uL (1.2-3.4); Absolute Monocytes 0.8 10^3/uL (0.1-0.6); Absolute Neutrophils 3.6 10^3/uL (1.4-6.5); Hematocrit 41.2 % (39.0-52.0); Hemoglobin 14.4 g/dL (13.0-18.0); Mean Corpuscular Hgb 32.1 pg (27.0-31.0); Mean Platelet Volume 8.3 fL (7.4-10.4); Nucleated Red Blood Cells % 0 % (-); Platelet Count 238 10^3/uL (130-400); Red Blood Cell Count 4.48 10^6/uL (4.70-6.10); Red Cell Dist. Width 12.9 % (11.5-14.5); White Blood Cell Count 6.2 10^3/uL (4.8-10.8)
[2023-11-25 09:06] LABS: Blood Urea Nitrogen 17 mg/dl (9-20); Calcium 9.6 mg/dl (8.4-10.2); Carbon Dioxide 26 mmol/L (22-30); Chloride 96 mmol/L (98-107); Estimated Creatinine Clearance 98 ml/min; Glucose 127 mg/dl (70-99); Potassium 4.1 mmol/L (3.5-5.1); Sodium 131 mmol/L (135-145); eGFR > 60.00
[2023-11-25] MEDS: DESENEX/MITRAZOL/ZEASORB 1 APPLIC TOPICAL (09:11)
[2023-11-25] MEDS: VITAMIN B1 100 MG PO (09:12)
[2023-11-25] MEDS: THERAGRAN 1 TABLET PO (09:13)
[2023-11-25] MEDS: ZESTRIL 20 MG PO (09:13)
[2023-11-25] MEDS: PROTONIX 40 MG PO (09:13)
[2023-11-25] MEDS: NORVASC 5 MG PO (09:13)
[2023-11-25] MEDS: FOLVITE 1 MG PO (09:13)
[2023-11-25] MEDS: MUCINEX 600 MG PO (09:14)
--- NOTE | 2023-11-25 09:52 | CM ---
Patient seen bedside, security returned phone to patient. Patient reports he has transportation home. Per Olga Lidia at [facility], patient declined to work with [facility]. Patient declines any needs at this time. CM will continue to follow for discharge
planning needs.
Plan; home no needs, declining [facility].
--- NOTE | 2023-11-25 11:08 | W.PN.HOSP.TC ---
Today's Communication/Plan
-
Monitor vital signs and see plan
Sodium now 131, continue with fluid restriction
BMP next week outpatient with PCP
Discharge today
Time of discharge 36 minutes
Assessment / Plan
Assessment / Plan
General: Comfortable and Conversant
HEENT: NormoCephalic, Atraumatic and Oxygen (Nasal Cannula)
Respiratory: No wheezes, few scattered rales
Cardiac: S1/S2 and Regular Rhythm
GI: Soft, Non Distended and Tender (Mild Epigastric Region)
Rectal: Deferred by Provider
Musculoskeletal: No Clubbing, No Cyanosis and Other (Trace edema bilateral lower extremities)
Skin: Warm and Dry
Neuro: Awake, Alert, Oriented and Nonfocal/grossly intact
Severe Hyponatremia secondary to Beer Potomania and HCTZ
-Nephrology following
s/p 3% NS
monitor sodium; now 131; continue with fluid restriction. BMP next week outpatient with pcp
-Hold HCTZ
Continue with fluid restrict
Alcoholic Gastritis/Hepatitis
improving
on regular diet now
-Added Protonix
-Trend LFTs
Hx of COPD; i do not suspect COPD exacerbation at this time
Patient was never hypoxic on admission however was put on oxygen for comfort. Currently on RA
-CXR without any PNA
-Change Symbicort to Pulmicort Neb and Duoneb
Essential Hypertension - Uncontrolled
-Continue lisinopril
-Add hydralazine prn
Started amlodipine
Hyperlipidemia
-restart atorvastatin
Alcohol Use with abuse and dependance and now with alcohol withdrawal
cw MSAS; requiring ativan at times; now off protocol as doing well
-Continue thiamine and folic acid
-Continue alcohol withdrawal protocol
Tobacco Use Disorder
-Encourage smoking cessation
DVT proph: Lovenox
Code Status: Full Code
Anticipated Discharge: Today
Subjective/Interval History
-
Date of Service: November 25, 2023
Denies pain
Objective Data
-
Labs:
Laboratory Results
11/25/23
08:04
WBC 6.2
Hgb 14.4
Hct 41.2
Plt Count 238
Sodium 131 L
Potassium 4.1
Chloride 96 L
Carbon Dioxide 26
BUN 17
Creatinine 0.9
Glucose 127 H
Calcium 9.6
Vital Signs:
Vital Signs
Temp Pulse Resp BP Pulse Ox
98.2 F 76 22 126/87 96
11/25/23 07:42 11/25/23 08:14 11/25/23 07:42 11/25/23 07:42 11/25/23 08:14
I&O
11/24/23 11/25/23 11/26/23
06:59 06:59 06:59
Intake Total 1320 / 1320 1270 / 1270
Balance 1320 / 1320 1270 / 1270
--- NOTE | 2023-11-25 11:17 | W.DCSUMMARY ---
Discharge Summary
Discharge Data
Date of Admission: 11/21/23
Date of Discharge: 11/25/23
-
Pending Results: No
Hospital Course
63-year-old male with past medical history of alcohol use, COPD, essential hypertension, hyperlipidemia, tobacco use disorder came to the hospital with severe hyponatremia which was likely thought was secondary to beer potomania and
hydrochlorothiazide. Patient was seen by nephrology and was started on 3% normal saline. Patient was also put on fluid restriction. Patient discharge sodium was 131 and patient instructed to follow-up with primary care provider for BMP next week.
Patient hydrochlorothiazide was also discontinued. Since his blood pressure was still elevated he was then started on amlodipine along with his lisinopril. Patient also had alcoholic gastritis/hepatitis which over time improved. Initially
patient also had alcohol withdrawal which over time improved with Ativan. Once patient symptoms improved, he was then discharged home with close follow-up with all his physicians outpatient.
Discharge Plan
-
Patient Disposition: Home (Routine Discharge)
Discharge Diagnosis/Procedures: Severe Hyponatremia secondary to Beer Potomania and hydrochlorothiazide
Alcoholic gastritis/hepatitis
Uncontrolled hypertension
Alcohol use with abuse and dependence
Alcohol withdrawal
Diet: As tolerated and Restrict fluids to 48 oz
Activity: As tolerated
Driving Restrictions: As prior to admission
Bathing Restrictions: None
Blood Work: BMP next week with primary care provider
Referrals:
Radha Lindsay MD [Family Provider] - in less than 1 week
Prescriptions:
New
folic acid 1 mg Tablet
1 mg PO DAILY Qty: 30 0RF
guaifenesin 600 mg Tablet Extended Release 12hr
600 mg PO Q12 Qty: 14 0RF
lisinopril 20 mg Tablet
20 mg PO DAILY Qty: 30 0RF
thiamine HCl (vitamin B1) 100 mg Tablet
100 mg PO BID Qty: 60 0RF
amlodipine 5 mg Tablet
5 mg PO DAILY Qty: 30 0RF
pantoprazole 40 mg Tablet,Delayed Release (Dr/Ec)
40 mg PO DAILY Qty: 30 0RF
nicotine 21 mg/24 hr Patch 24 Hour
21 mg transdermal DAILY Qty: 30 0RF
Continued
atorvastatin 20 MG tablet
20 mg PO DAILY
aspirin 81 MG tablet,delayed release (DR/EC)
81 mg PO DAILY
nicotine 21 mg/24 hr Patch 24 Hour
1 patch TRANSDERMAL DAILY PRN (Reason: smoking cessation)
Patient Comments:
11/21/2023, pt. not currently wearing one, but states that he had one on his left arm for a few hours last night (11/20/2023).
albuterol sulfate 90 mcg/actuation Hfa Aerosol Inhaler
2 puff INHALATION R Q4HPRN PRN (Reason: sob)
budesonide-formoterol [Symbicort] 160-4.5 mcg/actuation Hfa Aerosol Inhaler
2 puff INHALATION R BID
Imodium liquid
1 dose PO DAILYPRN PRN (Reason: diarrhea)
Discontinued
lisinopril-hydrochlorothiazide 20-12.5 mg Tablet
1 tab PO DAILY
Discharge Orders:
Discharge Patient (As Directed); Ordered 11/25/23
Ordered By: Ra More
Discharge Date and Time
Discharge Date/Time: 11/25/23 13:13
[2023-11-25 11:43] VITALS: BP 144/86
--- NOTE | 2023-11-25 13:20 | PTCARENOTE ---
Rn Flow mixer wet pour- Patient transported to the d/c lounge while waiting for ride.
--- NOTE | 2023-11-25 15:17 | W.PN.NEPH.PH ---
Today's Communication / Plan
-
- patient to d/c home
- counseling provided on stopping alcohol consumption
Assessment/Plan
-
Assessment:
Severe hyponatremia
Severe alcohol abuse disorder
High risk for DTs
Smoker
COPD
Absent L kidney
Hypertension (on thiazide at home)
Diarrhea x1 week
Diffuse muscle cramping
Plan:
-sodium up to 131
- differential for hyponatremia includes impaired free water excretion in the presence of thiazide + high intake of low osmolar solution (beer)
- Uosm 214, Travis 30 --> consistent with beer potomania + thiazide induced hyponatremia
-maintain fluid restriction
-Repeat urine osmolarity 295
- patient eating and drinking well so i believe his ADH stimulus will be gone (supported by decreasing Uosm)
- holding thiazide diuretic indefinitely
- alcohol withdrawal protocol, please ensure thiamine is given
- check TSH wnl
- replete K as needed
-
-
Date of Service: November 25, 2023
CC / HPI / ROS
-
Chief Complaint:
hyponatremia
History of Present Illness:
Na improved from 113 --> 120-->125--> 128 --> 131
Uosm decreasing
patient eating and drinking well
Review of Systems:
no complaints this AM
Labs
-
Labs:
WBC 6.2 10^3/uL (4.8-10.8) 11/25/23 08:04
RBC 4.48 10^6/uL (4.70-6.10) L 11/25/23 08:04
Hgb 14.4 g/dL (13.0-18.0) 11/25/23 08:04
Hct 41.2 % (39.0-52.0) 11/25/23 08:04
Plt Count 238 10^3/uL (130-400) 11/25/23 08:04
Sodium 131 mmol/L (135-145) L 11/25/23 08:04
Potassium 4.1 mmol/L (3.5-5.1) 11/25/23 08:04
Chloride 96 mmol/L (98-107) L 11/25/23 08:04
Carbon Dioxide 26 mmol/L (22-30) 11/25/23 08:04
BUN 17 mg/dl (9-20) 11/25/23 08:04
Creatinine 0.9 mg/dL (0.7-1.3) 11/25/23 08:04
eGFR > 60.00 11/25/23 08:04
Glucose 127 mg/dl (70-99) H 11/25/23 08:04
Calcium 9.6 mg/dl (8.4-10.2) 11/25/23 08:04
Phosphorus 4.0 mg/dl (2.5-4.5) 11/23/23 07:16
Glh-Z-Gtoancagcrs Pept 102 pg/ml 11/23/23 07:16
Albumin 3.6 g/dl (3.5-5.0) 11/22/23 15:36
Physical Exam
-
Vital Signs:
Vital Signs
Temp Pulse Resp BP Pulse Ox
97.5 F 67 20 144/86 93
11/25/23 11:43 11/25/23 11:43 11/25/23 11:43 11/25/23 11:43 11/25/23 11:43
Cardiovascular:: Regular rate and rhythm
Respiratory:: Bilateral: CTA
Lung Excursion:: Normal
Abdomen:: Nontender and Soft
Bowel Sounds:: Normal
Extremity Edema:: None: Bilateral:
Johnson Catheter: No
== END 2023-11-25 13:13 | disposition home or self-care (01) | DRG 897 ==
LOC: 4 EAST ACU 13:10
PROVIDERS: Nurse Practitioner Primary Care; Physician Assistant Medical; ADMITTING PHYSICIAN Internal Medicine; CONSULT PHYSICIAN Internal Medicine Critical Care Medicine; CONSULT PHYSICIAN Student in an Organized Health Care Education/Training Program; EMERGENCY PHYSICIAN Emergency Medicine; FAMILY PHYSICIAN Family Medicine
DX: F10.239 Alcohol dependence with withdrawal, unspecified (principal); E87.1 Hypo-osmolality and hyponatremia; J44.1 Chronic obstructive pulmonary disease with (acute) exacerbation; K29.20 Alcoholic gastritis without bleeding; F17.210 Nicotine dependence, cigarettes, uncomplicated; K75.9 Inflammatory liver disease, unspecified; I10 Essential (primary) hypertension; Z79.82 Long term (current) use of aspirin; R19.7 Diarrhea, unspecified; Z68.31 Body mass index [BMI] 31.0-31.9, adult; E66.9 Obesity, unspecified; E78.00 Pure hypercholesterolemia, unspecified; T50.2X5A Adverse effect of carbonic-anhydrase inhibitors, benzothiadiazides and other diuretics, initial encounter
CPT/HCPCS: 71046; 80048; 80053; 81003; 81015; 82077; 82977; 83036; 83690; 83735; 83880; 83930; 83935; 84100; 84295; 84300; 84443; 84550; 85025; 85027; 93005; 94640; 96361; 96374; 96375; 99291

== ENCOUNTER 2024-10-05 11:18 | Emergency (ER) | payer OTHER, SELFPAY ==
[2024-10-05 11:19] VITALS: BP 172/118
[2024-10-05 11:37] LABS: % Basophils 1.4 % (0-2); % Eosinophils 3.2 % (0-6); % Immature Granulocytes 0.5 % (0-0.5); % Lymphocytes 18.7 % (20.5-51.1); % Monocytes 12.1 % (1.7-9.3); % Neutrophils 64.1 % (42.2-75.2); Absolute Basophils 0.1 10^3/uL (0-0.2); Absolute Eosinophils 0.2 10^3/uL (0-0.7); Absolute Lymphocytes 1.4 10^3/uL (1.2-3.4); Absolute Monocytes 0.9 10^3/uL (0.1-0.6); Absolute Neutrophils 4.9 10^3/uL (1.4-6.5); Hematocrit 45.5 % (39.0-52.0); Hemoglobin 15.8 g/dL (13.0-18.0); Mean Corp Hgb Conc. 34.7 g/dL (33.0-37.0); Mean Corpuscular Hgb 32.2 pg (27.0-31.0); Mean Corpuscular Volume 92.7 fL (80.0-94.0); Mean Platelet Volume 8.2 fL (7.4-10.4); Nucleated Red Blood Cells % 0 % (-); Platelet Count 276 10^3/uL (130-400); Red Blood Cell Count 4.91 10^6/uL (4.70-6.10); Red Cell Dist. Width 12.9 % (11.5-14.5); White Blood Cell Count 7.6 10^3/uL (4.8-10.8)
[2024-10-05 12:00] LABS: ALT (SGPT) 53 U/L (0-50); AST (SGOT) 58 U/L (17-59); Albumin 4.3 g/dl (3.5-5.0); Alkaline Phosphatase 71 U/L (38-126); Blood Urea Nitrogen 15 mg/dl (9-20); Calcium 9.6 mg/dl (8.4-10.2); Carbon Dioxide 26 mmol/L (22-30); Chloride 94 mmol/L (98-107); Glucose 110 mg/dl (70-99); Potassium 4.7 mmol/L (3.5-5.1); Sodium 129 mmol/L (135-145); Total Bilirubin 0.8 mg/dl (0.2-1.3); Total Protein 7.4 g/dl (6.3-8.2); eGFR > 60.00
[2024-10-05 14:11] LABS: Alcohol None Detected
--- NOTE | 2024-10-05 15:41 | ED.GENMED ---
History of Present Illness
General
Chief Complaint: Abdominal Symptoms
Source: patient and records
Time Seen by Provider: 10/05/24 15:31
History of Present Illness
History of Present Illness:
64-year-old male with past medical history of COPD, hypertension, hyperlipidemia, chronic alcohol abuse presenting to the ER for evaluation stating he feels that his sodium is low and his gastritis is acting up. When asked what makes him feel that
his sodium is low patient stated initially that this is how he is felt before when his sodium is low and when continuously asked what symptoms he is having that makes him feel his sodium is low patient states that his bilateral feet will
intermittently swell up and he gets calf cramping. Patient also states that his gastritis is bothering him and when asked what symptoms lead him to believe he has gastritis complications patient states whenever he eats he starts having increased
flatulence for about 2 hours afterwards. Patient states 3 days ago he stopped drinking alcohol and states he 1 give this up. He denies any nausea, vomiting, tremors, hallucinations, chest pain, shortness of breath, abdominal pain or any other
concerns. Patient notes that he is readily noncompliant with his medications. He has no other concerns at this time.
Past History
Past History
ED Past Medical History: COPD, HTN, Psychiatric and Other (chronic alcoholic)
ED Past Surgical History: Orthopedic (L ankle sx 1999)
Patient has exhibited threatening behavior?: No
Social History
Tobacco: Former smoker (quit 04/26)
Alcohol: Chronic alcoholic (3-4 beers a day)
Drug: None
Personal: Single
Living: with family
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
Family History
Family History: Other (n/c)
Review of Systems
Review of Systems
All Other Systems: ROS reviewed and negative except as documented in HPI and ROS
Phy Exam
Physical Exam
Physical Exam:
GENERAL: Alert , in no apparent distress
EYE: clear conjunctiva b/l
HEAD: NCAT
ENT: o/p clr, mmm.
CARDIAC: Regular rate and rhythm .
LUNGS: Clear breath sounds bilaterally, no acute respiratory distress, no wheezes/rales/rhonchi
ABDOMEN: Soft, without focal tenderness, no r/g, no cvat
NEUROLOGICAL: Alert and oriented, no tremors appreciated
SKIN: Warm and dry, spider veins in varicose veins noted to bilateral lower extremities, somewhat dusky in appearance bilaterally but minimal edema
MUSCULOSKELETAL: minimal b/l pedal edema, well perfused.
PSYCH: Normal and appropriate interaction.
Scores
Heart Failure Risk
Heart Failure Risk Score: Not Applicable
Heart Score for Chest Pain Patients
STEMI patient?: Not applicable
Withdrawal Assessment of Alcohol
Withdrawal Assessment Completed?: Yes
Nausea and Vomiting: No nausea and no vomiting
Tactile Disturbances: None
Tremor: No tremor
Auditory Disturbances: Not present
Paroxysmal Sweats: No sweat visible
Visual Disturbances: Not present
Anxiety: No anxiety, at ease
Headache, Fullness in Head: Not present
Agitation: Normal activity
Orientation and clouding of sensorium: Oriented and can do serial additions
Total CIWA Score: 0
Alcohol Withdrawal Medication Recommendation: Equal to MSAS Score 0-4. Monitor & re-assess q2hrs, NO MEDICATION NEEDED
Course
Orders/Labs/Results
Orders:
Orders
10/05/24 11:28
Alcohol Urgent
Complete Blood Count/With Diff Urgent
Comprehensive Metabolic Panel Urgent
Abnormal Lab Results
10/05/24
11:28
MCH 32.2 H pg
(27.0-31.0)
Absolute Monos (auto) 0.9 H 10^3/uL
(0.1-0.6)
Lymphocytes % 18.7 L %
(20.5-51.1)
Monocytes % 12.1 H %
(1.7-9.3)
Sodium 129 L mmol/L
(135-145)
Chloride 94 L mmol/L
(98-107)
Glucose 110 H mg/dl
(70-99)
ALT 53 H U/L
(0-50)
10/05/24 11:28
10/05/24 11:28
Vital Signs
Initial and Last Documented VS:
Initial Vital Signs
Temp Pulse Resp BP Pulse Ox
97.9 F 76 18 172/118 99
10/05/24 11:19 10/05/24 11:19 10/05/24 11:19 10/05/24 11:19 10/05/24 11:19
Last Documented Vital Signs
Temp Pulse Resp BP Pulse Ox
97.9 F 86 18 174/111 95
10/05/24 11:19 10/05/24 15:49 10/05/24 15:49 10/05/24 15:49 10/05/24 15:49
MDM/Problems Addressed
Differential Diagnosis Includes:
Peripheral vascular disease, no concern for DVT given the bilateral nature of the symptoms as well as the minimal edema appreciated, effects of long-term alcohol use, hyponatremia or other electrolyte disturbance, hypertension
MDM/Problems Addressed:
64-year-old male with multiple chronic medical conditions presenting to the ER for evaluation stating he feels that his sodium is low and his gastritis is acting up. Patient was noted to be admitted earlier this year for hyponatremia which was
thought to be related to chronic alcohol use. Patient admits to noncompliance with medication regimen. He subsided using alcohol 3 days ago. Not exhibiting any signs of acute alcohol withdrawal presently. I suspect his hypertension is related to
medication noncompliance. Labs were initiated in triage and patient does have a very mild hyponatremia of 129. Mild ALT elevation which is likely related to his alcohol use. He has had an otherwise unremarkable workup. At this time I do feel
most of patient's symptoms are more related to chronic medical conditions as opposed to an acute emergent process and he is stable for discharge home. Will notify his primary care provider to ensure close follow-up and repeat sodium testing/labs
within the next week or so.
Chronic conditions affecting care: Other (Chronic alcohol use)
*Pulse Oximetry
Patient hypoxic: no
*Critical Care Note
Total Time (30-74mins, 75-104mins- exclusive of procedures): Not Applicable
Data Reviewed
Review of Other/Old Records Reveals: Labs and Records
Patient Management
Discussion with other providers: PCP
Escalation/DeEscalation of care consider admission/obs:
I spoke to patient's primary care provider who notes that patient is readily noncompliant and does not follow-up even when he has an appointment. They will ensure staff reaches out to the patient and attempt to have the patient follow-up on an
outpatient basis.
ED Attending Note
-
Portions of this chart may have been created with voice recognition software.� Occasional wrong word or��sound alike� substitutions may have occurred due to the inherent limitations of voice recognition software.
Discharge Plan
Departure
Patient Disposition: Home (Routine Discharge)
Date of Disposition: 10/05/24
Time of Disposition: 15:42
Patient with high blood pressure during this ER visit?: Yes
Discharge Problem:
Hypertension, Muscle cramping
Instructions: Dehydration, Adult (DC)
Prescriptions:
No Action
atorvastatin 20 MG tablet
20 mg PO DAILY
aspirin 81 MG tablet,delayed release (DR/EC)
81 mg PO DAILY
nicotine 21 mg/24 hr Patch 24 Hour
1 patch TRANSDERMAL DAILY PRN (Reason: smoking cessation)
Patient Comments:
11/21/2023, pt. not currently wearing one, but states that he had one on his left arm for a few hours last night (11/20/2023).
albuterol sulfate 90 mcg/actuation Hfa Aerosol Inhaler
2 puff INHALATION R Q4HPRN PRN (Reason: sob)
budesonide-formoterol [Symbicort] 160-4.5 mcg/actuation Hfa Aerosol Inhaler
2 puff INHALATION R BID
Imodium liquid
1 dose PO DAILYPRN PRN (Reason: diarrhea)
folic acid 1 mg Tablet
1 mg PO DAILY Qty: 30 0RF
guaifenesin 600 mg Tablet Extended Release 12hr
600 mg PO Q12 Qty: 14 0RF
lisinopril 20 mg Tablet
20 mg PO DAILY Qty: 30 0RF
thiamine HCl (vitamin B1) 100 mg Tablet
100 mg PO BID Qty: 60 0RF
amlodipine 5 mg Tablet
5 mg PO DAILY Qty: 30 0RF
pantoprazole 40 mg Tablet,Delayed Release (Dr/Ec)
40 mg PO DAILY Qty: 30 0RF
nicotine 21 mg/24 hr Patch 24 Hour
21 mg transdermal DAILY Qty: 30 0RF
Interventions
Interventions:
*General Assessment Last Done: 10/05/24 11:19
*Neglect/Abuse Screening Last Done: 10/05/24 11:19
*Nursing Disposition Last Done: 10/05/24 15:50
[facility] Assessment Last Done: 10/05/24 15:49
Discharge Date and Time
Discharge Date/Time: 10/05/24 15:58
Print Language: GREENLANDIC
[2024-10-05 15:49] VITALS: BP 174/111
== END 2024-10-05 15:58 | disposition home or self-care (01) ==
LOC: EMR 11:18
PROVIDERS: Emergency Medicine; EMERGENCY PHYSICIAN Emergency Medicine; FAMILY PHYSICIAN Family Medicine
DX: I10 Essential (primary) hypertension (principal); R25.2 Cramp and spasm; K29.70 Gastritis, unspecified, without bleeding; R14.3 Flatulence; M79.89 Other specified soft tissue disorders; Z91.148 Patient's other noncompliance with medication regimen for other reason; E87.1 Hypo-osmolality and hyponatremia; F10.20 Alcohol dependence, uncomplicated; J44.9 Chronic obstructive pulmonary disease, unspecified; Z87.891 Personal history of nicotine dependence
CPT/HCPCS: 99283; 80053; 82077; 85025